=== PATIENT | female | born 1945 | race Caucasian/White ===

== ENCOUNTER 2018-04-18 17:41 | Inpatient (IN) | payer MEDICARE, BC ==
[2018-04-18] MEDS ORDERED: Lactated Ringers 1,000 ML IV ONE (17:57)
[2018-04-18 18:29] LABS: CHLORIDE,CL 104 mEq/L (98-106); SODIUM,NA 138 mEq/L (136-145)
--- NOTE | 2018-04-18 18:31 | EDM.PDOC ---
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 She reports she has had 12+ loose stools today. She reports she was feeling extremely weak so she called her friend to bring her here for evaluation. She reports she has been taking Immodium without relief. Denies any recent antibiotic use. She reports she uses Zofran and Compazine for nausea. She last had Zofran around noon. She denies any fever, chills, chest pain, shortness of breath, cough. Denies any abdominal pain. She was first diagnosed with pancreatic cancer in January 2016. She underwent whipple procedure at the [facility] 02/26/2016. She then underwent chemotherapy Gemcitabine x 6 cycles. She finished course of treatment on 2016. CT abd/pelvis 03/14/2018 revealed metastasis to lung and RUQ. She finished round 3 of 6 of Folfox on Wednesday04/11/2018. She reports up until the past few days she has tolerated all her treatments well. 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 She is down about 10 lbs in the past 2 weeks per chart review from oncology. She reports she sees Debbie VENCES at [facility]. - Related Data Allergies Allergy/AdvReac Type Severity Reaction Status Date / Time niacin Allergy Rash Verified 04/18/18 19:39 Home Meds: Home Meds Aspirin [Adult Low Dose Aspirin EC] 81 mg PO DAILY 03/07/16 [History] Cholecalciferol (Vitamin D3) [Vitamin D3] 1,000 unit PO DAILY 03/07/16 [History] Multivitamin [Multi-Vitamin Daily] 1 tab PO DAILY 03/07/16 [History] Omeprazole 20 mg PO DAILY 03/07/16 [History] oxyCODONE 5 mg PO Q6H PRN 03/07/16 [History] Prochlorperazine [Compazine] 5 mg PO DAILY PRN 03/18/18 [History] Amylase/Lipase/Protease [Creon DR 24,000 Unit] 12,000 units PO DAILY 04/18/18 [ History] Diphenoxylate HCl/Atropine [Diphenoxylate-Atrop 2.5-0.025] 1 tab PO DAILY PRN [History] Ondansetron [Ondansetron ODT] 1 tab PO Q8H PRN 04/18/18 [History] Prochlorperazine Maleate 1 tab PO DAILY 04/18/18 [History] Rivaroxaban [Xarelto] 1 tab PO DAILY 04/18/18 [History] metroNIDAZOLE [Metronidazole] 1 tab PO DAILY 04/18/18 [History] ED ROS GENERAL - Review of Systems Review Of Systems: See Below Constitutional: Reports: Weakness, Fatigue, Decreased Appetite, Weight Loss. Denies: Fever, Chills HEENT: Reports: No Symptoms Respiratory: Reports: No Symptoms. Denies: Shortness of Breath, Cough, Sputum Cardiovascular: Reports: No Symptoms. Denies: Chest Pain, Dyspnea on Exertion, Edema, Lightheadedness Endocrine: Reports: Fatigue GI/Abdominal: Reports: Diarrhea, Decreased Appetite, Flatus, Nausea. Denies: Abdominal Pain, Constipation, Hematemesis, Hematochezia, Melena, Vomiting : Reports: No Symptoms. Denies: Dysuria, Flank Pain, Frequency, Urgency Musculoskeletal: Reports: No Symptoms Skin: Reports: No Symptoms Neurological: Reports: Weakness Psychiatric: Reports: No Symptoms Hematologic/Lymphatic: Reports: No Symptoms Immunologic: Reports: No Symptoms ED EXAM, GI/ABD - Physical Exam Exam: See Below Exam Limited By: No Limitations General Appearance: Alert, WD/WN, No Apparent Distress Eyes: Bilateral: EOMI Throat/Mouth: Other (dry mucous membranes) Respiratory/Chest: No Respiratory Distress, Lungs Clear, Normal Breath Sounds, No Accessory Muscle Use, Chest Non-Tender Cardiovascular: Normal Peripheral Pulses, Regular Rate, Rhythm, No Edema, No Gallop, No JVD, No Murmur, No Rub, Tachycardia GI/Abdominal Exam: Normal Bowel Sounds, Soft, No Organomegaly, Tender (LLQ). No : Guarding, Rigid, Rebound Back Exam: Normal Inspection, Full Range of Motion. No: CVA Tenderness (L), CVA Tenderness (R) Extremities: Normal Inspection, Normal Range of Motion, Non-Tender, Normal Capillary Refill, No Pedal Edema Neurological: Alert, Oriented, CN II-XII Intact, Normal Cognition, Normal Gait, Normal Reflexes, No Motor/Sensory Deficits Psychiatric: Normal Affect, Normal Mood Skin Exam: Warm, Dry, Intact, Normal Color, No Rash Lymphatic: No Adenopathy Course - Vital Signs Last Recorded V/S: Last Vital Signs Temp 98.8 F 04/18/18 17:42 Pulse 117 H 04/18/18 17:42 Resp 20 04/18/18 17:42 BP 136/85 04/18/18 17:42 Pulse Ox 99 04/18/18 17:42 - Orders/Labs/Meds Orders: Active Orders 24 hr Category Date Time Status STOOL CULTURE [MREF] Stat Lab 04/18/18 18:10 Received Labs: Laboratory Tests 04/18/18 04/18/18 04/18/18 Range/Units 18:10 18:10 18:10 WBC 2.5 L (5.0-10.0) 10^3/uL RBC 3.80 L (4.00-5.50) 10^6/uL Hgb 11.1 L (12.0-16.0) g/dL Hct 34.4 L (37.0-47.0) % MCV 90.5 (82.0-94.0) fL MCH 29.2 (27.0-32.0) pg MCHC 32.3 L (33.0-38.0) g/dL RDW Coeff of Santosh 15.3 H (11.0-15.0) % Plt Count 80 L (150-400) 10^3/uL Neut % (Auto) 55.9 (35-85) % Lymph % (Auto) 33.1 (10-55) % Winn % (Auto) 9.4 (0-16) % Eos % (Auto) 1.2 (0-5) % Baso % (Auto) 0.4 (0-3) % Neut # (Auto) 1.42 L (1.80-7.00) 10^3/uL Lymph # (Auto) 0.84 L (1.00-4.80) 10^3/uL Winn # (Auto) 0.24 (0.00-0.80) 10^3/uL Eos # (Auto) 0.03 (0.00-0.45) 10^3/uL Baso # (Auto) 0.01 10^3/uL Sodium 138 (136-145) mEq/L Potassium 3.3 L (3.5-5.0) mEq/L Chloride 104 (98-106) mEq/L Carbon Dioxide 28 (21-32) mmol/L BUN 22 H (7-18) mg/dL Creatinine 0.7 (0.6-1.0) mg/dL Est Cr Clr Drug Dosing 58.30 mL/min Estimated GFR (MDRD) > 60 (>=60) mL/min Glucose 135 H (75-99) mg/dL Calcium 8.1 L (8.4-10.1) mg/dL Total Bilirubin (0.0-1.0) mg/dL Direct Bilirubin (0.0-0.3) mg/dL Indirect Bilirubin mg/dL AST (15-37) U/L ALT (12-78) U/L Alkaline Phosphatase (46-116) U/L C-Reactive Protein 5.3 H (0.2-0.8) mg/dL Total Protein (6.4-8.2) g/dL Albumin (3.4-5.0) g/dL 04/18/18 Range/Units 18:35 WBC (5.0-10.0) 10^3/uL RBC (4.00-5.50) 10^6/uL Hgb (12.0-16.0) g/dL Hct (37.0-47.0) % MCV (82.0-94.0) fL MCH (27.0-32.0) pg MCHC (33.0-38.0) g/dL RDW Coeff of Santosh (11.0-15.0) % Plt Count (150-400) 10^3/uL Neut % (Auto) (35-85) % Lymph % (Auto) (10-55) % Winn % (Auto) (0-16) % Eos % (Auto) (0-5) % Baso % (Auto) (0-3) % Neut # (Auto) (1.80-7.00) 10^3/uL Lymph # (Auto) (1.00-4.80) 10^3/uL Winn # (Auto) (0.00-0.80) 10^3/uL Eos # (Auto) (0.00-0.45) 10^3/uL Baso # (Auto) 10^3/uL Sodium (136-145) mEq/L Potassium (3.5-5.0) mEq/L Chloride (98-106) mEq/L Carbon Dioxide (21-32) mmol/L BUN (7-18) mg/dL Creatinine (0.6-1.0) mg/dL Est Cr Clr Drug Dosing mL/min Estimated GFR (MDRD) (>=60) mL/min Glucose (75-99) mg/dL Calcium (8.4-10.1) mg/dL Total Bilirubin 1.0 (0.0-1.0) mg/dL Direct Bilirubin 0.2 (0.0-0.3) mg/dL Indirect Bilirubin 0.8 mg/dL AST 29 (15-37) U/L ALT 17 (12-78) U/L Alkaline Phosphatase 98 (46-116) U/L C-Reactive Protein (0.2-0.8) mg/dL Total Protein 5.5 L (6.4-8.2) g/dL Albumin 2.5 L (3.4-5.0) g/dL Meds: Medications Discontinued Medications Generic Name Dose Route Start Last Admin Trade Name Freq PRN Reason Stop Dose Admin Lactated Ringer's 1,000 mls @ 999 mls/hr 04/18/18 17:57 04/18/18 18:23 Ringers, Lactated IV 04/18/18 18:57 999 mls/hr .BOLUS ONE Administration Ondansetron HCl Confirm 04/18/18 18:46 04/18/18 18:56 Zofran Administered 04/18/18 18:47 4 mg Dose Administration 4 mg .ROUTE .STK-MED ONE Departure - Departure Time of Disposition: 19:00 Disposition: Refer to Observation Condition: Fair Clinical Impression: Diarrhea, Generalized weakness, 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, Dehydration Nausea & vomiting Qualifiers: Vomiting type: unspecified Vomiting Intractability: non-intractable Qualified Code(s): R11.2 - Nausea with vomiting, unspecified Neutropenia Qualifiers: Neutropenia type: secondary to cancer chemotherapy Qualified Code(s): D70.1 - Agranulocytosis secondary to cancer chemotherapy; T45.1X5A - Adverse effect of antineoplastic and immunosuppressive drugs, initial encounter - Discharge Information - Problem List & Annotations (1) Dehydration SNOMED Code(s): 88230064 Code(s): E86.0 - DEHYDRATION Status: Acute Current Visit: Yes (2) Diarrhea SNOMED Code(s): 59478692 Code(s): R19.7 - DIARRHEA, UNSPECIFIED Status: Acute Current Visit: Yes (3) Generalized weakness SNOMED Code(s): 42437404 Code(s): R53.1 - WEAKNESS Status: Acute Current Visit: Yes (4) Nausea & vomiting SNOMED Code(s): 73022541 Code(s): R11.2 - NAUSEA WITH VOMITING, UNSPECIFIED Status: Acute Current Visit: Yes Qualifiers: Vomiting type: unspecified Vomiting Intractability: non-intractable Qualified Code(s): R11.2 - Nausea with vomiting, unspecified (5) Neutropenia SNOMED Code(s): 261149292 Code(s): D70.9 - NEUTROPENIA, UNSPECIFIED Status: Acute Current Visit: Yes Qualifiers: Neutropenia type: secondary to cancer chemotherapy Qualified Code(s): D70.1 - Agranulocytosis secondary to cancer chemotherapy; T45.1X5A - Adverse effect of antineoplastic and immunosuppressive drugs, initial encounter (6) 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 SNOMED Code(s): 748765954, 539755308 Code(s): C25.9 - MALIGNANT NEOPLASM OF PANCREAS, UNSPECIFIED; C78.00 - SECONDARY MALIGNANT NEOPLASM OF UNSPECIFIED LUNG Status: Acute Current Visit : Yes - Problem List Review Problem List Initiated/Reviewed/Updated: Yes - My Orders Last 24 Hours: My Active Orders 04/18/18 18:10 STOOL CULTURE [MREF] Stat - Assessment/Plan Admission H&P: Please use this note as an admission H&P Last 24 Hours: My Active Orders 04/18/18 18:10 STOOL CULTURE [MREF] Stat Plan: Refer to observation due to generalized weakness, nausea/vomiting, and diarrhea. She does currently live home alone. Will admit direct to Dr. Doss. Radha valdez at 3.3. IVF with KCL overnight. Cdff and stool WBC negative. Lomotil or Imodium as needed for diarrhea. WBC 2.5. Did receive Neulasta on Wednesday with chemotherapy. Patient agreeable to plan. Transferred to floor in satisfactory condition.
[2018-04-18] MEDS ORDERED: Ondansetron 4 MG/2 ML SDV ONE (18:46)
[2018-04-18] MEDS ORDERED: Atropine/Diphenoxylate 0.025-2.5 MG Tab PO PRN (20:05)
[2018-04-18] MEDS ORDERED: Morphine 2 MG/ML Syringe IVPUSH PRN (20:05)
[2018-04-18] MEDS ORDERED: Temazepam 15 MG Cap PO PRN (20:05)
[2018-04-18] MEDS ORDERED: NS + KCl 20mEq/L 1,000 ML IV SCH (20:05)
[2018-04-18] MEDS ORDERED: Prochlorperazine 10 MG Tab PO PRN (20:05)
[2018-04-18] MEDS ORDERED: Ondansetron 4 MG/2 ML SDV IV PRN (20:05)
[2018-04-18] MEDS ORDERED: Potassium Chloride 40 MEQ in Premix Bag 1 BAG IV ONE (20:07)
[2018-04-18] MEDS ORDERED: Sodium Chloride 0.9% 1,000 ML IV ONE (20:10)
[2018-04-19] MEDS: NS + KCl 20mEq/L 1,000 ML IV SCH ×3 (04:44→21:21)
[2018-04-19] MEDS: Pantoprazole 40 MG Tab.CR PO SCH (06:44)
[2018-04-19] MEDS: Aspirin 81 MG Tab.EC PO SCH (07:27)
[2018-04-19 08:40] LABS: CHLORIDE,CL 107 mEq/L (98-106); SODIUM,NA 139 mEq/L (136-145)
[2018-04-19] MEDS: AMYLASE PO SCH (10:04)
[2018-04-19] MEDS: LIPASE PO SCH (10:04)
[2018-04-19] MEDS: PROTEASE PO SCH (10:04)
[2018-04-19] MEDS: Ondansetron 8 MG in Sodium Chloride 0.9% 50 ML IV PRN (13:55)
[2018-04-19] MEDS: Loperamide 2 MG Cap PO PRN (14:01)
[2018-04-19] MEDS: Acetaminophen 325 MG Tab PO PRN (20:07)
--- NOTE | 2018-04-19 20:18 | PCM.PN ---
- General Info Date of Service: 04/19/18 Functional Status: Reports: Pain Controlled, Tolerating Diet, Ambulating - Review of Systems General: Reports: Weakness, Fatigue, Malaise HEENT: Reports: No Symptoms Pulmonary: Denies: Shortness of Breath, Cough Cardiovascular: Denies: Chest Pain, Edema Gastrointestinal: Reports: Abdominal Pain, Diarrhea, Nausea. Denies: Vomiting Genitourinary: Reports: No Symptoms Musculoskeletal: Reports: No Symptoms Skin: Reports: No Symptoms Neurological: Reports: Weakness - Patient Data Vitals - Most Recent: Last Vital Signs Temp 100.4 F 04/19/18 20:00 Pulse 100 04/19/18 20:00 Resp 18 04/19/18 20:00 BP 149/77 H 04/19/18 20:00 Pulse Ox 99 04/19/18 20:00 Weight - Most Recent: 162 lb 12.8 oz I&O - Last 24 Hours: Intake & Output 04/19/18 04/19/18 04/19/18 06:59 14:59 22:59 Intake Total 100 1000 615 Output Total 300 300 400 Balance -200 700 215 Lab Results Last 24 Hours: Laboratory Results - last 24 hr 04/19/18 04/19/18 Range/Units 07:11 07:11 WBC 1.4 L* (5.0-10.0) 10^3/uL RBC 3.30 L (4.00-5.50) 10^6/uL Hgb 9.6 L (12.0-16.0) g/dL Hct 30.2 L (37.0-47.0) % MCV 91.5 (82.0-94.0) fL MCH 29.1 (27.0-32.0) pg MCHC 31.8 L (33.0-38.0) g/dL RDW Coeff of Santosh 15.1 H (11.0-15.0) % Plt Count 70 L (150-400) 10^3/uL Neut % (Auto) 39.4 (35-85) % Lymph % (Auto) 43.0 (10-55) % [place] % (Auto) 15.5 (0-16) % Eos % (Auto) 2.1 (0-5) % Baso % (Auto) 0 (0-3) % Neut # (Auto) 0.56 L (1.80-7.00) 10^3/uL Lymph # (Auto) 0.61 L (1.00-4.80) 10^3/uL [place] # (Auto) 0.22 (0.00-0.80) 10^3/uL Eos # (Auto) 0.03 (0.00-0.45) 10^3/uL Baso # (Auto) 0.00 10^3/uL Sodium 139 (136-145) mEq/L Potassium 4.1 D (3.5-5.0) mEq/L Chloride 107 H (98-106) mEq/L Carbon Dioxide 25 (21-32) mmol/L BUN 18 (7-18) mg/dL Creatinine 0.6 (0.6-1.0) mg/dL Est Cr Clr Drug Dosing 68.02 mL/min Estimated GFR (MDRD) > 60 (>=60) mL/min Glucose 108 H (75-99) mg/dL Calcium 7.7 L (8.4-10.1) mg/dL Jan Results Last 24 Hours: Microbiology 04/18/18 18:10 C. difficile DNA Amplification - Final Stool / Feces NEGATIVE CDIFF BY DNA 04/18/18 18:10 Stool for WBCs - Final Stool / Feces NO WBC SEEN Med Orders - Current: Current Medications Acetaminophen (Tylenol) 650 mg PO Q4H PRN PRN Reason: Pain (Mild 1-3)/fever Last Admin: 04/19/18 20:07 Dose: 650 mg Aspirin (Halfprin) 81 mg PO DAILY [facility] Last Admin: 04/19/18 07:27 Dose: 81 mg Diphenoxylate HCl/Atropine (Lomotil 0.025-2.5 Mg) 1 tab PO DAILY PRN PRN Reason: Diarrhea Last Admin: 04/19/18 08:28 Dose: 1 tab Potassium Chloride/Sodium Chloride (Normal Saline With 20 Meq Kcl) 1,000 mls @ 125 mls/hr IV ASDIRECTED [facility] Last Admin: 04/19/18 12:53 Dose: 125 mls/hr Ondansetron HCl 8 mg/ Sodium (Chloride) 54 mls @ 200 mls/hr IV Q6H PRN PRN Reason: nausea/vomiting Last Admin: 04/19/18 13:55 Dose: 200 mls/hr Loperamide HCl (Imodium) 4 mg PO Q6H PRN PRN Reason: Diarrhea Last Admin: 04/19/18 14:01 Dose: 4 mg Morphine Sulfate (Morphine) 1 mg IVPUSH Q2H PRN PRN Reason: Pain (severe 7-10) Last Admin: 04/19/18 18:36 Dose: 1 mg Ptom Amylase/Lipase/Protease 12, 000 Units 12,000 units PO DAILY [facility] Last Admin: 04/19/18 10:04 Dose: 12,000 units Ptom Rivaroxaban ([Xarelto] 20 Mg Tab) 1 tab PO DAILY [facility] Oxycodone HCl (Oxycodone) 5 mg PO Q6H PRN PRN Reason: Pain Pantoprazole Sodium (Protonix) 40 mg PO ACBREAKFAST [facility] Last Admin: 04/19/18 06:44 Dose: 40 mg Prochlorperazine Maleate (Compazine) 5 mg PO DAILY PRN PRN Reason: Nausea Temazepam (Restoril) 15 mg PO BEDTIME PRN PRN Reason: Sleep Discontinued Medications Lactated Ringer's (Ringers, Lactated) 1,000 mls @ 999 mls/hr IV .BOLUS ONE Stop: 04/18/18 18:57 Last Admin: 04/18/18 18:23 Dose: 999 mls/hr Potassium Chloride/Sodium Chloride (Normal Saline With 20 Meq Kcl) 1,000 mls @ 125 mls/hr IV ASDIRECTED [facility] Potassium Chloride 40 meq/ (Premix) 100 mls @ 12.5 mls/hr IV ONETIME ONE Stop: 04/19/18 04:06 Last Admin: 04/18/18 20:33 Dose: 12.5 mls/hr Sodium Chloride (Normal Saline) 1,000 mls @ 125 mls/hr IV ONETIME ONE Stop: 04/19/18 04:09 Last Admin: 04/18/18 20:33 Dose: 125 mls/hr Ondansetron HCl (Zofran) Confirm Administered Dose 4 mg .ROUTE .STK-MED ONE Stop: 04/18/18 18:47 Last Admin: 04/18/18 18:56 Dose: 4 mg Ondansetron HCl (Zofran) 8 mg IV Q6H PRN PRN Reason: Nausea/Vomiting - Exam General: Alert, Oriented HEENT: Mucous Membr. Moist/[place] Neck: Supple Lungs: Clear to Auscultation, Normal Respiratory Effort Cardiovascular: Regular Rate, Regular Rhythm GI/Abdominal Exam: Normal Bowel Sounds, Soft, Guarding, Tender Extremities: Normal Inspection, No Pedal Edema Skin: Warm, Dry Neurological: No New Focal Deficit - Problem List & Annotations (1) Diarrhea SNOMED Code(s): 32625546 Code(s): R19.7 - DIARRHEA, UNSPECIFIED Status: Acute Priority: High Current Visit: Yes (2) Generalized weakness SNOMED Code(s): 25942939 Code(s): R53.1 - WEAKNESS Status: Acute Priority: High Current Visit: Yes (3) Nausea & vomiting SNOMED Code(s): 57896621 Code(s): R11.2 - NAUSEA WITH VOMITING, UNSPECIFIED Status: Acute Priority : High Current Visit: Yes Qualifiers: Vomiting type: unspecified Vomiting Intractability: non-intractable Qualified Code(s): R11.2 - Nausea with vomiting, unspecified (4) Neutropenia SNOMED Code(s): 919869193 Code(s): D70.9 - NEUTROPENIA, UNSPECIFIED Status: Acute Priority: High Current Visit: Yes Qualifiers: Neutropenia type: secondary to cancer chemotherapy Qualified Code(s): D70.1 - Agranulocytosis secondary to cancer chemotherapy; T45.1X5A - Adverse effect of antineoplastic and immunosuppressive drugs, initial encounter (5) 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 SNOMED Code(s): 601633207, 873296591 Code(s): C25.9 - MALIGNANT NEOPLASM OF PANCREAS, UNSPECIFIED; C78.00 - SECONDARY MALIGNANT NEOPLASM OF UNSPECIFIED LUNG Status: Acute Priority: High Current Visit: Yes - Problem List Review Problem List Initiated/Reviewed/Updated: Yes - Assessment Assessment:: Diarrhea Weakness Nausea and vomiting Metastatic Pancreatic Cancer - Plan Plan:: Patient continues to have mild abdominal pain, nausea intermittently. Does still have diarrhea stools but feels they are lessening. Did tolerate oral intake at breakfast this am without vomiting. Does remain very weak. Had recently had her 3rd session of chemotherapy for her pancreatic cancer. Relates she had been tolerating them up to this point. Remains neutropenic, WBC down to 1.4 today. Stool studies collected, negative for WBC and c diff. Will continue with IV fluids. Immodium for ongoing stools. Possible discharge home tomorrow.
[2018-04-20] MEDS: NS + KCl 20mEq/L 1,000 ML IV SCH ×3 (05:22→22:01)
[2018-04-20] MEDS: Pantoprazole 40 MG Tab.CR PO SCH (06:35)
[2018-04-20 07:35] LABS: CHLORIDE,CL 105 mEq/L (98-106); SODIUM,NA 137 mEq/L (136-145)
[2018-04-20] MEDS ORDERED: RIVAROXABAN 20 MG PO SCH (08:00)
[2018-04-20] MEDS: Aspirin 81 MG Tab.EC PO SCH (09:40)
[2018-04-20] MEDS: Loperamide 2 MG Cap PO PRN ×2 (09:41→16:27)
[2018-04-20] MEDS: Acetaminophen 325 MG Tab PO PRN (09:41)
[2018-04-20] MEDS: PROTEASE PO SCH ×3 (09:42→17:37)
[2018-04-20] MEDS: LIPASE PO SCH ×3 (09:42→17:37)
[2018-04-20] MEDS: AMYLASE PO SCH ×3 (09:42→17:37)
[2018-04-20] MEDS ORDERED: AMYLASE PO SCH (10:00)
[2018-04-20] MEDS ORDERED: PROTEASE PO SCH (10:00)
[2018-04-20] MEDS ORDERED: LIPASE PO SCH (10:00)
[2018-04-20] MEDS ORDERED: Ibuprofen 200 MG Tab PO PRN (11:49)
[2018-04-20] MEDS: Ibuprofen 200 MG Tab PO PRN (12:35)
--- NOTE | 2018-04-20 16:34 | PCM.PN ---
- General Info Date of Service: 04/20/18 Admission Dx/Problem (Free Text): Diarrhea Functional Status: Reports: Pain Controlled, Tolerating Diet, Ambulating - Review of Systems General: Reports: Fever, Weakness, Fatigue, Malaise HEENT: Reports: No Symptoms Pulmonary: Denies: Shortness of Breath, Cough Cardiovascular: Denies: Chest Pain, Edema, Lightheadedness Gastrointestinal: Reports: Abdominal Pain, Diarrhea, Nausea. Denies: Vomiting Genitourinary: Reports: No Symptoms Musculoskeletal: Reports: No Symptoms Skin: Reports: No Symptoms Neurological: Reports: Weakness - Patient Data Vitals - Most Recent: Last Vital Signs Temp 100.9 F H 04/20/18 13:35 Pulse 108 H 04/20/18 11:41 Resp 16 04/20/18 11:41 BP 150/84 H 04/20/18 11:41 Pulse Ox 98 04/20/18 11:41 Weight - Most Recent: 162 lb 12.8 oz I&O - Last 24 Hours: Intake & Output 04/20/18 04/20/18 04/20/18 06:59 14:59 22:59 Intake Total 1200 1000 Output Total 800 Balance 400 1000 Lab Results Last 24 Hours: Laboratory Results - last 24 hr 04/20/18 04/20/18 Range/Units 07:00 07:00 WBC 0.8 L* (5.0-10.0) 10^3/uL RBC 3.12 L (4.00-5.50) 10^6/uL Hgb 9.3 L (12.0-16.0) g/dL Hct 28.3 L (37.0-47.0) % MCV 90.7 (82.0-94.0) fL MCH 29.8 (27.0-32.0) pg MCHC 32.9 L (33.0-38.0) g/dL RDW Coeff of Santosh 14.9 (11.0-15.0) % Plt Count 66 L (150-400) 10^3/uL Neut % (Auto) 15.7 L (35-85) % Lymph % (Auto) 48.2 (10-55) % [place] % (Auto) 33.7 H (0-16) % Eos % (Auto) 2.4 (0-5) % Baso % (Auto) 0 (0-3) % Neut # (Auto) 0.13 L (1.80-7.00) 10^3/uL Lymph # (Auto) 0.40 L (1.00-4.80) 10^3/uL [place] # (Auto) 0.28 (0.00-0.80) 10^3/uL Eos # (Auto) 0.02 (0.00-0.45) 10^3/uL Baso # (Auto) 0.00 10^3/uL Sodium 137 (136-145) mEq/L Potassium 3.7 (3.5-5.0) mEq/L Chloride 105 (98-106) mEq/L Carbon Dioxide 23 (21-32) mmol/L BUN 9 (7-18) mg/dL Creatinine 0.5 L (0.6-1.0) mg/dL Est Cr Clr Drug Dosing 81.62 mL/min Estimated GFR (MDRD) > 60 (>=60) mL/min Glucose 112 H (75-99) mg/dL Calcium 7.8 L (8.4-10.1) mg/dL C-Reactive Protein 6.7 H (0.2-0.8) mg/dL Jan Results Last 24 Hours: Microbiology 04/18/18 18:10 Stool Aerobic Culture - Preliminary Stool / Feces Med Orders - Current: Current Medications Acetaminophen (Tylenol) 650 mg PO Q4H PRN PRN Reason: Pain (Mild 1-3)/fever Last Admin: 04/20/18 09:41 Dose: 650 mg Aspirin (Halfprin) 81 mg PO DAILY [facility] Last Admin: 04/20/18 09:40 Dose: 81 mg Diphenoxylate HCl/Atropine (Lomotil 0.025-2.5 Mg) 1 tab PO DAILY PRN PRN Reason: Diarrhea Last Admin: 04/19/18 08:28 Dose: 1 tab Potassium Chloride/Sodium Chloride (Normal Saline With 20 Meq Kcl) 1,000 mls @ 125 mls/hr IV ASDIRECTED [facility] Last Admin: 04/20/18 13:32 Dose: 125 mls/hr Ondansetron HCl 8 mg/ Sodium (Chloride) 54 mls @ 200 mls/hr IV Q6H PRN PRN Reason: nausea/vomiting Last Admin: 04/19/18 13:55 Dose: 200 mls/hr Ibuprofen (Motrin) 400 mg PO Q6H PRN PRN Reason: Pain/Fever Last Admin: 04/20/18 12:35 Dose: 400 mg Loperamide HCl (Imodium) 4 mg PO Q6H PRN PRN Reason: Diarrhea Last Admin: 04/20/18 16:27 Dose: 4 mg Morphine Sulfate (Morphine) 1 mg IVPUSH Q2H PRN PRN Reason: Pain (severe 7-10) Last Admin: 04/19/18 18:36 Dose: 1 mg Ptom Rivaroxaban ([Xarelto] 20 Mg Tab) 1 tab PO DAILY [facility] Ptom Amylase/Lipase/Protease 12, 000 Units 36,000 units PO TIDMEALS [facility] Last Admin: 04/20/18 12:30 Dose: 36,000 units Oxycodone HCl (Oxycodone) 5 mg PO Q6H PRN PRN Reason: Pain Pantoprazole Sodium (Protonix) 40 mg PO ACBREAKFAST [facility] Last Admin: 04/20/18 06:35 Dose: 40 mg Prochlorperazine Maleate (Compazine) 5 mg PO DAILY PRN PRN Reason: Nausea Temazepam (Restoril) 15 mg PO BEDTIME PRN PRN Reason: Sleep Last Admin: 04/20/18 00:39 Dose: 15 mg Discontinued Medications Lactated Ringer's (Ringers, Lactated) 1,000 mls @ 999 mls/hr IV .BOLUS ONE Stop: 04/18/18 18:57 Last Admin: 04/18/18 18:23 Dose: 999 mls/hr Potassium Chloride/Sodium Chloride (Normal Saline With 20 Meq Kcl) 1,000 mls @ 125 mls/hr IV ASDIRECTED [facility] Potassium Chloride 40 meq/ (Premix) 100 mls @ 12.5 mls/hr IV ONETIME ONE Stop: 04/19/18 04:06 Last Admin: 04/18/18 20:33 Dose: 12.5 mls/hr Sodium Chloride (Normal Saline) 1,000 mls @ 125 mls/hr IV ONETIME ONE Stop: 04/19/18 04:09 Last Admin: 04/18/18 20:33 Dose: 125 mls/hr Ibuprofen (Motrin) 200 mg PO Q6H PRN PRN Reason: Pain/Fever Ptom Amylase/Lipase/Protease 12, 000 Units 12,000 units PO DAILY [facility] Last Admin: 04/20/18 09:42 Dose: Not Given Ptom Amylase/Lipase/Protease 12, 000 Units 36,000 units PO TID [facility] Last Admin: 04/20/18 09:43 Dose: 36,000 units Ondansetron HCl (Zofran) Confirm Administered Dose 4 mg .ROUTE .STK-MED ONE Stop: 04/18/18 18:47 Last Admin: 04/18/18 18:56 Dose: 4 mg Ondansetron HCl (Zofran) 8 mg IV Q6H PRN PRN Reason: Nausea/Vomiting - Exam General: Alert, Oriented HEENT: Mucous Membr. Moist/[place] Neck: Supple Lungs: Clear to Auscultation, Normal Respiratory Effort Cardiovascular: Regular Rate, Regular Rhythm GI/Abdominal Exam: Normal Bowel Sounds, Soft, Non-Tender Extremities: Normal Inspection, No Pedal Edema Skin: Warm, Dry Neurological: No New Focal Deficit - Problem List & Annotations (1) Diarrhea SNOMED Code(s): 03000680 Code(s): R19.7 - DIARRHEA, UNSPECIFIED Status: Acute Priority: High Current Visit: Yes (2) Generalized weakness SNOMED Code(s): 73672721 Code(s): R53.1 - WEAKNESS Status: Acute Priority: High Current Visit: Yes (3) Nausea & vomiting SNOMED Code(s): 82281206 Code(s): R11.2 - NAUSEA WITH VOMITING, UNSPECIFIED Status: Acute Priority : High Current Visit: Yes Qualifiers: Vomiting type: unspecified Vomiting Intractability: non-intractable Qualified Code(s): R11.2 - Nausea with vomiting, unspecified (4) Neutropenia SNOMED Code(s): 837368671 Code(s): D70.9 - NEUTROPENIA, UNSPECIFIED Status: Acute Priority: High Current Visit: Yes Qualifiers: Neutropenia type: secondary to cancer chemotherapy Qualified Code(s): D70.1 - Agranulocytosis secondary to cancer chemotherapy; T45.1X5A - Adverse effect of antineoplastic and immunosuppressive drugs, initial encounter (5) 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 SNOMED Code(s): 721178082, 154252726 Code(s): C25.9 - MALIGNANT NEOPLASM OF PANCREAS, UNSPECIFIED; C78.00 - SECONDARY MALIGNANT NEOPLASM OF UNSPECIFIED LUNG Status: Acute Priority: High Current Visit: Yes (6) Palliative care patient SNOMED Code(s): 176493572 Code(s): Z51.5 - ENCOUNTER FOR PALLIATIVE CARE Status: Acute Priority: High Current Visit: Yes - Problem List Review Problem List Initiated/Reviewed/Updated: Yes - My Orders Last 24 Hours: My Active Orders 04/20/18 10:10 Cardiac Monitoring [RC] 799,199904/20/18 11:49 Blood Culture x2 Reflex Set [OM.PC] Stat 04/20/18 12:00 CULTURE BLOOD [BC] Stat Amylase/Lipase/Protease 36,000 units PO TIDMEALS 04/20/18 12:13 CULTURE BLOOD [BC] Stat 04/20/18 12:30 Ibuprofen [Motrin] 400 mg PO Q6H PRN 04/21/18 05:11 BASIC METABOLIC PANEL,BMP [CHEM] AM C-REACTIVE PROTEIN [CHEM] AM CBC WITH AUTO DIFF [HEME] AM - Assessment Assessment:: Diarrhea Weakness Nausea and vomiting Metastatic Pancreatic Cancer - Plan Plan:: Patient continues to have mild abdominal pain, nausea intermittently. Does still have diarrhea stools but feels they are lessening. Did tolerate oral intake at breakfast this am without vomiting. Does remain very weak. Had recently had her 3rd session of chemotherapy for her pancreatic cancer. Relates she had been tolerating them up to this point. Remains neutropenic, WBC down to 1.4 today. Stool studies collected, negative for WBC and c diff. Will continue with IV fluids. Immodium for ongoing stools. Possible discharge home tomorrow. 04-20-2018 Palliative care patient does feel better today. Does have mild abdominal pain, feels the diarrhea is slowing down. Overall feels stronger. Is running temps today. 101 at times. WBC is down to 0.8 today. Hemoglobin 9.3. CRP slightly increased to 6.7. Blood pressure stable. Is ambulating in room, tolerating well. Abdomen does remain firm to the RUQ, tender with palpation. Will continue with IV fluids. Add Rocephin. Blood cultures x2. Reevaluate labs in am. Transferred to [facility] status.
[2018-04-20] MEDS: cefTRIAXone 1 GM Vial IVPUSH SCH (17:37)
[2018-04-20] MEDS: Ondansetron 8 MG in Sodium Chloride 0.9% 50 ML IV PRN (19:39)
[2018-04-21] MEDS: Ibuprofen 200 MG Tab PO PRN (03:32)
[2018-04-21] MEDS: NS + KCl 20mEq/L 1,000 ML IV SCH ×3 (06:04→22:17)
[2018-04-21] MEDS: Pantoprazole 40 MG Tab.CR PO SCH (06:05)
[2018-04-21] MEDS: PROTEASE PO SCH ×3 (07:26→16:30)
[2018-04-21] MEDS: Acetaminophen 325 MG Tab PO PRN ×2 (07:26→19:46)
[2018-04-21] MEDS: AMYLASE PO SCH ×3 (07:26→16:30)
[2018-04-21] MEDS: LIPASE PO SCH ×3 (07:26→16:30)
[2018-04-21] MEDS: Aspirin 81 MG Tab.EC PO SCH (07:26)
[2018-04-21 08:00] LABS: CHLORIDE,CL 107 mEq/L (98-106); SODIUM,NA 137 mEq/L (136-145)
--- NOTE | 2018-04-21 15:07 | PCM.PN ---
- General Info Date of Service: 04/21/18 Admission Dx/Problem (Free Text): Diarrhea Functional Status: Reports: Pain Controlled, Tolerating Diet (eats a small amount with meals), Ambulating - Review of Systems General: Reports: Fever, Weakness, Fatigue, Malaise HEENT: Reports: No Symptoms Pulmonary: Denies: Shortness of Breath, Cough Cardiovascular: Denies: Chest Pain, Edema, Lightheadedness Gastrointestinal: Reports: Abdominal Pain, Diarrhea, Nausea. Denies: Vomiting Genitourinary: Reports: No Symptoms Musculoskeletal: Reports: No Symptoms Skin: Reports: Pallor Neurological: Reports: Weakness - Patient Data Vitals - Most Recent: Last Vital Signs Temp 96 F 04/21/18 13:03 Pulse 110 H 04/21/18 13:03 Resp 16 04/21/18 11:39 BP 104/63 04/21/18 11:39 Pulse Ox 96 04/21/18 11:39 Weight - Most Recent: 162 lb 12.8 oz I&O - Last 24 Hours: Intake & Output 04/21/18 04/21/18 04/21/18 06:59 14:59 22:59 Intake Total 1400 733 Output Total 500 Balance 900 733 Lab Results Last 24 Hours: Laboratory Results - last 24 hr 04/21/18 04/21/18 04/21/18 Range/Units 07:00 07:00 08:44 WBC 0.8 L* (5.0-10.0) 10^3/uL RBC 2.79 L (4.00-5.50) 10^6/uL Hgb 8.2 L (12.0-16.0) g/dL Hct 25.2 L (37.0-47.0) % MCV 90.3 (82.0-94.0) fL MCH 29.4 (27.0-32.0) pg MCHC 32.5 L (33.0-38.0) g/dL RDW Coeff of Santosh 14.8 (11.0-15.0) % Plt Count 88 L (150-400) 10^3/uL Add Manual Diff Yes Neutrophils % (Manual) 4 L (35-85) % Band Neutrophils % 16 H (0-5) % Lymphocytes % (Manual) 48 (21-55) % Monocytes % (Manual) 24 H (2-12) % Eosinophils % (Manual) 8 H (0-5) % Absolute Neutrophils 0.16 L (1.80-7.00) 10^3/uL Lymphocytes # (Manual) 0.38 L (1.00-4.80) 10^3/uL Monocytes # (Manual) 0.19 (0.00-0.80) 10^3/uL Eosinophils # (Manual) 0.06 (0.00-0.45) 10^3/uL Sodium 137 (136-145) mEq/L Potassium 3.6 (3.5-5.0) mEq/L Chloride 107 H (98-106) mEq/L Carbon Dioxide 23 (21-32) mmol/L BUN 13 (7-18) mg/dL Creatinine 0.7 (0.6-1.0) mg/dL Est Cr Clr Drug Dosing 58.30 mL/min Estimated GFR (MDRD) > 60 (>=60) mL/min Glucose 90 (75-99) mg/dL Calcium 7.7 L (8.4-10.1) mg/dL C-Reactive Protein 23.3 H (0.2-0.8) mg/dL Urine Color Dark yellow (YELLOW) Urine Appearance Clear (CLEAR) Urine pH 5.5 (4.5-8.0) Ur Specific Isabella >= 1.030 H (1.003-1.020) Urine Protein 100 H (NEGATIVE) mg/dL Urine Glucose (UA) Negative (NEGATIVE) mg/dL Urine Ketones 15 H (NEGATIVE) mg/dL Urine Occult Blood Negative (NEGATIVE) Urine Nitrite Negative (NEGATIVE) Urine Bilirubin Negative (NEGATIVE) Urine Urobilinogen 0.2 (0.2-1.0) EU/dL Ur Leukocyte Esterase Negative (NEGATIVE) Urine RBC Not seen (0-5) /HPF Urine WBC Not seen (0-5) /HPF Ur Squamous Epith Cells Few H (NOT SEEN) /HPF Urine Bacteria Few H (NOT SEEN) /HPF Urine Mucus Many H (NOT SEEN) /HPF Jan Results Last 24 Hours: Microbiology 04/20/18 12:00 Aerobic Blood Culture - Preliminary Blood - Venous NO GROWTH AFTER 1 DAY Anaerobic Blood Culture - Preliminary NO GROWTH AFTER 1 DAY 04/20/18 12:13 Aerobic Blood Culture - Preliminary Blood - Venous - Lab Draw NO GROWTH AFTER 1 DAY Anaerobic Blood Culture - Preliminary NO GROWTH AFTER 1 DAY 04/18/18 18:10 Stool Aerobic Culture - Preliminary Stool / Feces Med Orders - Current: Current Medications Acetaminophen (Tylenol) 650 mg PO Q4H PRN PRN Reason: Pain (Mild 1-3)/fever Last Admin: 04/21/18 07:26 Dose: 650 mg Aspirin (Halfprin) 81 mg PO DAILY [facility] Last Admin: 04/21/18 07:26 Dose: 81 mg Ceftriaxone Sodium (Rocephin) 1 gm IVPUSH DAILY@1600 [facility] Last Admin: 04/20/18 17:37 Dose: 1 gm Diphenoxylate HCl/Atropine (Lomotil 0.025-2.5 Mg) 1 tab PO DAILY PRN PRN Reason: Diarrhea Last Admin: 04/19/18 08:28 Dose: 1 tab Potassium Chloride/Sodium Chloride (Normal Saline With 20 Meq Kcl) 1,000 mls @ 125 mls/hr IV ASDIRECTED [facility] Last Admin: 04/21/18 14:05 Dose: 125 mls/hr Ondansetron HCl 8 mg/ Sodium (Chloride) 54 mls @ 200 mls/hr IV Q6H PRN PRN Reason: nausea/vomiting Last Admin: 04/20/18 19:39 Dose: 200 mls/hr Ibuprofen (Motrin) 400 mg PO Q6H PRN PRN Reason: Pain/Fever Last Admin: 04/21/18 03:32 Dose: 400 mg Loperamide HCl (Imodium) 4 mg PO Q6H PRN PRN Reason: Diarrhea Last Admin: 04/20/18 16:27 Dose: 4 mg Morphine Sulfate (Morphine) 1 mg IVPUSH Q2H PRN PRN Reason: Pain (severe 7-10) Last Admin: 04/19/18 18:36 Dose: 1 mg Ptom Rivaroxaban ([Xarelto] 20 Mg Tab) 1 tab PO DAILY [facility] Ptom Amylase/Lipase/Protease 12, 000 Units 36,000 units PO TIDMEALS [facility] Last Admin: 04/21/18 11:56 Dose: 36,000 units Oxycodone HCl (Oxycodone) 5 mg PO Q6H PRN PRN Reason: Pain Pantoprazole Sodium (Protonix) 40 mg PO ACBREAKFAST [facility] Last Admin: 04/21/18 06:05 Dose: 40 mg Prochlorperazine Maleate (Compazine) 5 mg PO DAILY PRN PRN Reason: Nausea Last Admin: 04/21/18 00:00 Dose: 5 mg Temazepam (Restoril) 15 mg PO BEDTIME PRN PRN Reason: Sleep Last Admin: 04/20/18 00:39 Dose: 15 mg Discontinued Medications Lactated Ringer's (Ringers, Lactated) 1,000 mls @ 999 mls/hr IV .BOLUS ONE Stop: 04/18/18 18:57 Last Admin: 04/18/18 18:23 Dose: 999 mls/hr Potassium Chloride/Sodium Chloride (Normal Saline With 20 Meq Kcl) 1,000 mls @ 125 mls/hr IV ASDIRECTED [facility] Potassium Chloride 40 meq/ (Premix) 100 mls @ 12.5 mls/hr IV ONETIME ONE Stop: 04/19/18 04:06 Last Admin: 04/18/18 20:33 Dose: 12.5 mls/hr Sodium Chloride (Normal Saline) 1,000 mls @ 125 mls/hr IV ONETIME ONE Stop: 04/19/18 04:09 Last Admin: 04/18/18 20:33 Dose: 125 mls/hr Ibuprofen (Motrin) 200 mg PO Q6H PRN PRN Reason: Pain/Fever Ptom Amylase/Lipase/Protease 12, 000 Units 12,000 units PO DAILY [facility] Last Admin: 04/20/18 09:42 Dose: Not Given Ptom Amylase/Lipase/Protease 12, 000 Units 36,000 units PO TID [facility] Last Admin: 04/20/18 09:43 Dose: 36,000 units Ondansetron HCl (Zofran) Confirm Administered Dose 4 mg .ROUTE .STK-MED ONE Stop: 04/18/18 18:47 Last Admin: 04/18/18 18:56 Dose: 4 mg Ondansetron HCl (Zofran) 8 mg IV Q6H PRN PRN Reason: Nausea/Vomiting - Exam General: Alert, Oriented HEENT: Mucous Membr. Moist/[place] Neck: Supple Lungs: Clear to Auscultation, Normal Respiratory Effort Cardiovascular: Regular Rate, Regular Rhythm GI/Abdominal Exam: Normal Bowel Sounds, Soft, Guarding, Tender (RUQ) Extremities: Normal Inspection, No Pedal Edema Skin: Warm, Dry Neurological: No New Focal Deficit - Problem List & Annotations (1) Diarrhea SNOMED Code(s): 26705859 Code(s): R19.7 - DIARRHEA, UNSPECIFIED Status: Acute Priority: High Current Visit: Yes (2) Generalized weakness SNOMED Code(s): 86649706 Code(s): R53.1 - WEAKNESS Status: Acute Priority: High Current Visit: Yes (3) Nausea & vomiting SNOMED Code(s): 07002774 Code(s): R11.2 - NAUSEA WITH VOMITING, UNSPECIFIED Status: Acute Priority : High Current Visit: Yes Qualifiers: Vomiting type: unspecified Vomiting Intractability: non-intractable Qualified Code(s): R11.2 - Nausea with vomiting, unspecified (4) Neutropenia SNOMED Code(s): 891639807 Code(s): D70.9 - NEUTROPENIA, UNSPECIFIED Status: Acute Priority: High Current Visit: Yes Qualifiers: Neutropenia type: secondary to cancer chemotherapy Qualified Code(s): D70.1 - Agranulocytosis secondary to cancer chemotherapy; T45.1X5A - Adverse effect of antineoplastic and immunosuppressive drugs, initial encounter (5) 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 SNOMED Code(s): 900945045, 486043488 Code(s): C25.9 - MALIGNANT NEOPLASM OF PANCREAS, UNSPECIFIED; C78.00 - SECONDARY MALIGNANT NEOPLASM OF UNSPECIFIED LUNG Status: Acute Priority: High Current Visit: Yes (6) Palliative care patient SNOMED Code(s): 718611831 Code(s): Z51.5 - ENCOUNTER FOR PALLIATIVE CARE Status: Acute Priority: High Current Visit: Yes - Problem List Review Problem List Initiated/Reviewed/Updated: Yes - My Orders Last 24 Hours: My Active Orders 04/20/18 16:45 cefTRIAXone [Rocephin] 1 gm IVPUSH DAILY@1600 04/21/18 08:44 Chest 2V [CR] Routine UA W/MICROSCOPIC [URIN] Routine 04/22/18 05:11 BASIC METABOLIC PANEL,BMP [CHEM] AM C-REACTIVE PROTEIN [CHEM] AM CBC WITH AUTO DIFF [HEME] AM - Assessment Assessment:: Diarrhea Weakness Nausea and vomiting Metastatic Pancreatic Cancer - Plan Plan:: Patient continues to have mild abdominal pain, nausea intermittently. Does still have diarrhea stools but feels they are lessening. Did tolerate oral intake at breakfast this am without vomiting. Does remain very weak. Had recently had her 3rd session of chemotherapy for her pancreatic cancer. Relates she had been tolerating them up to this point. Remains neutropenic, WBC down to 1.4 today. Stool studies collected, negative for WBC and c diff. Will continue with IV fluids. Immodium for ongoing stools. Possible discharge home tomorrow. 04-20-2018 Palliative care patient does feel better today. Does have mild abdominal pain, feels the diarrhea is slowing down. Overall feels stronger. Is running temps today. 101 at times. WBC is down to 0.8 today. Hemoglobin 9.3. CRP slightly increased to 6.7. Blood pressure stable. Is ambulating in room, tolerating well. Abdomen does remain firm to the RUQ, tender with palpation. Will continue with IV fluids. Add Rocephin. Blood cultures x2. Reevaluate labs in am. Transferred to acute status. 04-21-2018 Patient continues to feel weak but better than on admit day. She still has loose stools but improved. Has been running fevers up to 102. Denies cough, no urinary complaints. Did obtain blood cultures yesterday, premilinary negative today. CRP has increased to 23, WBC remains at 0.8. Hemoglobin down to 8.1. Patient relates has not had previous concerns with anemia to the point of ever needing blood transfusions up to this point with chemo. Continues to have nausea, was treated with Zofran. Small intake with meals. Blood pressure is stable. Abdomen remains soft, tender to RUQ. Will continue with IV fluids. Continue Rocephin. Obtain chest xray and urine today. Inappropriate for discharge due to status.
[2018-04-21] MEDS: cefTRIAXone 1 GM Vial IVPUSH SCH (16:13)
[2018-04-21] MEDS: Ondansetron 8 MG in Sodium Chloride 0.9% 50 ML IV PRN (16:14)
[2018-04-21] MEDS: oxyCODONE 5 MG Tab PO PRN (16:26)
[2018-04-22] MEDS: Acetaminophen 325 MG Tab PO PRN ×2 (01:51→19:51)
[2018-04-22] MEDS: oxyCODONE 5 MG Tab PO PRN ×2 (03:44→10:47)
[2018-04-22] MEDS: NS + KCl 20mEq/L 1,000 ML IV SCH ×3 (06:15→23:19)
[2018-04-22] MEDS: Pantoprazole 40 MG Tab.CR PO SCH (07:08)
[2018-04-22 07:32] LABS: CHLORIDE,CL 108 mEq/L (98-106); SODIUM,NA 138 mEq/L (136-145)
[2018-04-22] MEDS: PROTEASE PO SCH ×3 (08:04→17:42)
[2018-04-22] MEDS: AMYLASE PO SCH ×3 (08:04→17:42)
[2018-04-22] MEDS: Aspirin 81 MG Tab.EC PO SCH (08:04)
[2018-04-22] MEDS: LIPASE PO SCH ×3 (08:04→17:42)
--- NOTE | 2018-04-22 09:16 | PCM.PN ---
- General Info Date of Service: 04/22/18 Admission Dx/Problem (Free Text): Diarrhea Functional Status: Reports: Pain Controlled, Tolerating Diet, Ambulating - Review of Systems General: Reports: Fever (last fever last evening), Weakness, Fatigue, Malaise HEENT: Reports: No Symptoms Pulmonary: Denies: Shortness of Breath, Cough Cardiovascular: Denies: Chest Pain, Edema, Lightheadedness Gastrointestinal: Reports: Abdominal Pain, Diarrhea, Nausea. Denies: Vomiting Genitourinary: Reports: No Symptoms Musculoskeletal: Reports: No Symptoms Skin: Reports: No Symptoms Neurological: Reports: Weakness - Patient Data Vitals - Most Recent: Last Vital Signs Temp 98.5 F 04/22/18 08:00 Pulse 111 H 04/22/18 08:00 Resp 20 04/22/18 08:00 BP 105/57 L 04/22/18 08:00 Pulse Ox 96 04/22/18 08:00 Weight - Most Recent: 162 lb 12.8 oz I&O - Last 24 Hours: Intake & Output 04/21/18 04/22/18 04/22/18 22:59 06:59 14:59 Intake Total 1300 1546 Output Total 300 200 100 Balance 1000 1346 -100 Lab Results Last 24 Hours: Laboratory Results - last 24 hr 04/21/18 04/22/18 04/22/18 Range/Units 08:44 07:15 07:15 WBC 2.7 L (5.0-10.0) 10^3/uL RBC 3.00 L (4.00-5.50) 10^6/uL Hgb 8.7 L (12.0-16.0) g/dL Hct 27.3 L (37.0-47.0) % MCV 91.0 (82.0-94.0) fL MCH 29.0 (27.0-32.0) pg MCHC 31.9 L (33.0-38.0) g/dL RDW Coeff of Santosh 15.8 H (11.0-15.0) % Plt Count 130 L (150-400) 10^3/uL Neut % (Auto) 55.7 (35-85) % Lymph % (Auto) 21.2 (10-55) % [place] % (Auto) 20.1 H (0-16) % Eos % (Auto) 2.6 (0-5) % Baso % (Auto) 0.4 (0-3) % Neut # (Auto) 1.50 L (1.80-7.00) 10^3/uL Lymph # (Auto) 0.57 L (1.00-4.80) 10^3/uL [place] # (Auto) 0.54 (0.00-0.80) 10^3/uL Eos # (Auto) 0.07 (0.00-0.45) 10^3/uL Baso # (Auto) 0.01 10^3/uL Sodium 138 (136-145) mEq/L Potassium 3.8 (3.5-5.0) mEq/L Chloride 108 H (98-106) mEq/L Carbon Dioxide 19 L (21-32) mmol/L BUN 17 (7-18) mg/dL Creatinine 0.7 (0.6-1.0) mg/dL Est Cr Clr Drug Dosing 58.30 mL/min Estimated GFR (MDRD) > 60 (>=60) mL/min Glucose 76 (75-99) mg/dL Calcium 8.3 L (8.4-10.1) mg/dL C-Reactive Protein 29.7 H (0.2-0.8) mg/dL Urine Color Dark yellow (YELLOW) Urine Appearance Clear (CLEAR) Urine pH 5.5 (4.5-8.0) Ur Specific [place] >= 1.030 H (1.003-1.020) Urine Protein 100 H (NEGATIVE) mg/dL Urine Glucose (UA) Negative (NEGATIVE) mg/dL Urine Ketones 15 H (NEGATIVE) mg/dL Urine Occult Blood Negative (NEGATIVE) Urine Nitrite Negative (NEGATIVE) Urine Bilirubin Negative (NEGATIVE) Urine Urobilinogen 0.2 (0.2-1.0) EU/dL Ur Leukocyte Esterase Negative (NEGATIVE) Urine RBC Not seen (0-5) /HPF Urine WBC Not seen (0-5) /HPF Ur Squamous Epith Cells Few H (NOT SEEN) /HPF Urine Bacteria Few H (NOT SEEN) /HPF Urine Mucus Many H (NOT SEEN) /HPF Jan Results Last 24 Hours: Microbiology 04/20/18 12:00 Aerobic Blood Culture - Preliminary Blood - Venous NO GROWTH AFTER 1 DAY Anaerobic Blood Culture - Preliminary NO GROWTH AFTER 1 DAY 04/20/18 12:13 Aerobic Blood Culture - Preliminary Blood - Venous - Lab Draw NO GROWTH AFTER 1 DAY Anaerobic Blood Culture - Preliminary NO GROWTH AFTER 1 DAY Med Orders - Current: Current Medications Acetaminophen (Tylenol) 650 mg PO Q4H PRN PRN Reason: Pain (Mild 1-3)/fever Last Admin: 04/22/18 01:51 Dose: 650 mg Aspirin (Halfprin) 81 mg PO DAILY [facility] Last Admin: 04/22/18 08:04 Dose: 81 mg Ceftriaxone Sodium (Rocephin) 1 gm IVPUSH DAILY@1600 [facility] Last Admin: 04/21/18 16:13 Dose: 1 gm Diphenoxylate HCl/Atropine (Lomotil 0.025-2.5 Mg) 1 tab PO DAILY PRN PRN Reason: Diarrhea Last Admin: 04/19/18 08:28 Dose: 1 tab Potassium Chloride/Sodium Chloride (Normal Saline With 20 Meq Kcl) 1,000 mls @ 125 mls/hr IV ASDIRECTED [facility] Last Admin: 04/22/18 06:15 Dose: 125 mls/hr Ondansetron HCl 8 mg/ Sodium (Chloride) 54 mls @ 200 mls/hr IV Q6H PRN PRN Reason: nausea/vomiting Last Admin: 04/21/18 16:14 Dose: 200 mls/hr Ibuprofen (Motrin) 400 mg PO Q6H PRN PRN Reason: Pain/Fever Last Admin: 04/21/18 03:32 Dose: 400 mg Loperamide HCl (Imodium) 4 mg PO Q6H PRN PRN Reason: Diarrhea Last Admin: 04/20/18 16:27 Dose: 4 mg Morphine Sulfate (Morphine) 1 mg IVPUSH Q2H PRN PRN Reason: Pain (severe 7-10) Last Admin: 04/19/18 18:36 Dose: 1 mg Ptom Rivaroxaban ([Xarelto] 20 Mg Tab) 1 tab PO DAILY [facility] Ptom Amylase/Lipase/Protease 12, 000 Units 36,000 units PO TIDMEALS [facility] Last Admin: 04/22/18 08:04 Dose: 36,000 units Oxycodone HCl (Oxycodone) 5 mg PO Q6H PRN PRN Reason: Pain Last Admin: 04/22/18 03:44 Dose: 5 mg Pantoprazole Sodium (Protonix) 40 mg PO ACBREAKFAST [facility] Last Admin: 04/22/18 07:08 Dose: 40 mg Prochlorperazine Maleate (Compazine) 5 mg PO DAILY PRN PRN Reason: Nausea Last Admin: 04/21/18 00:00 Dose: 5 mg Temazepam (Restoril) 15 mg PO BEDTIME PRN PRN Reason: Sleep Last Admin: 04/20/18 00:39 Dose: 15 mg Discontinued Medications Lactated Ringer's (Ringers, Lactated) 1,000 mls @ 999 mls/hr IV .BOLUS ONE Stop: 04/18/18 18:57 Last Admin: 04/18/18 18:23 Dose: 999 mls/hr Potassium Chloride/Sodium Chloride (Normal Saline With 20 Meq Kcl) 1,000 mls @ 125 mls/hr IV ASDIRECTED [facility] Potassium Chloride 40 meq/ (Premix) 100 mls @ 12.5 mls/hr IV ONETIME ONE Stop: 04/19/18 04:06 Last Admin: 04/18/18 20:33 Dose: 12.5 mls/hr Sodium Chloride (Normal Saline) 1,000 mls @ 125 mls/hr IV ONETIME ONE Stop: 04/19/18 04:09 Last Admin: 04/18/18 20:33 Dose: 125 mls/hr Ibuprofen (Motrin) 200 mg PO Q6H PRN PRN Reason: Pain/Fever Ptom Amylase/Lipase/Protease 12, 000 Units 12,000 units PO DAILY [facility] Last Admin: 04/20/18 09:42 Dose: Not Given Ptom Amylase/Lipase/Protease 12, 000 Units 36,000 units PO TID [facility] Last Admin: 04/20/18 09:43 Dose: 36,000 units Ondansetron HCl (Zofran) Confirm Administered Dose 4 mg .ROUTE .STK-MED ONE Stop: 04/18/18 18:47 Last Admin: 04/18/18 18:56 Dose: 4 mg Ondansetron HCl (Zofran) 8 mg IV Q6H PRN PRN Reason: Nausea/Vomiting - Exam General: Alert, Oriented HEENT: Mucous Membr. Moist/[place] Neck: Supple Lungs: Clear to Auscultation, Normal Respiratory Effort Cardiovascular: Regular Rate, Regular Rhythm GI/Abdominal Exam: Normal Bowel Sounds, Soft, Tender (RUQ) Extremities: Normal Inspection, No Pedal Edema Skin: Warm, Dry Neurological: No New Focal Deficit - Problem List & Annotations (1) Diarrhea SNOMED Code(s): 96765421 Code(s): R19.7 - DIARRHEA, UNSPECIFIED Status: Acute Priority: High Current Visit: Yes (2) Generalized weakness SNOMED Code(s): 83587024 Code(s): R53.1 - WEAKNESS Status: Acute Priority: High Current Visit: Yes (3) Nausea & vomiting SNOMED Code(s): 07508361 Code(s): R11.2 - NAUSEA WITH VOMITING, UNSPECIFIED Status: Acute Priority : High Current Visit: Yes Qualifiers: Vomiting type: unspecified Vomiting Intractability: non-intractable Qualified Code(s): R11.2 - Nausea with vomiting, unspecified (4) Neutropenia SNOMED Code(s): 974184940 Code(s): D70.9 - NEUTROPENIA, UNSPECIFIED Status: Acute Priority: High Current Visit: Yes Qualifiers: Neutropenia type: secondary to cancer chemotherapy Qualified Code(s): D70.1 - Agranulocytosis secondary to cancer chemotherapy; T45.1X5A - Adverse effect of antineoplastic and immunosuppressive drugs, initial encounter (5) 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 SNOMED Code(s): 097570472, 829177483 Code(s): C25.9 - MALIGNANT NEOPLASM OF PANCREAS, UNSPECIFIED; C78.00 - SECONDARY MALIGNANT NEOPLASM OF UNSPECIFIED LUNG Status: Acute Priority: High Current Visit: Yes (6) Palliative care patient SNOMED Code(s): 428099584 Code(s): Z51.5 - ENCOUNTER FOR PALLIATIVE CARE Status: Acute Priority: High Current Visit: Yes - Problem List Review Problem List Initiated/Reviewed/Updated: Yes - My Orders Last 24 Hours: My Active Orders 04/21/18 08:44 Chest 2V [CR] Routine UA W/MICROSCOPIC [URIN] Routine 04/22/18 09:10 Abdomen Pelvis w Cont [CT] Routine Chest w Cont [CT] Routine - Assessment Assessment:: Diarrhea Weakness Nausea and vomiting Metastatic Pancreatic Cancer - Plan Plan:: Patient continues to have mild abdominal pain, nausea intermittently. Does still have diarrhea stools but feels they are lessening. Did tolerate oral intake at breakfast this am without vomiting. Does remain very weak. Had recently had her 3rd session of chemotherapy for her pancreatic cancer. Relates she had been tolerating them up to this point. Remains neutropenic, WBC down to 1.4 today. Stool studies collected, negative for WBC and c diff. Will continue with IV fluids. Immodium for ongoing stools. Possible discharge home tomorrow. 04-20-2018 Palliative care patient does feel better today. Does have mild abdominal pain, feels the diarrhea is slowing down. Overall feels stronger. Is running temps today. 101 at times. WBC is down to 0.8 today. Hemoglobin 9.3. CRP slightly increased to 6.7. Blood pressure stable. Is ambulating in room, tolerating well. Abdomen does remain firm to the RUQ, tender with palpation. Will continue with IV fluids. Add Rocephin. Blood cultures x2. Reevaluate labs in am. Transferred to acute status. 04-21-2018 Patient continues to feel weak but better than on admit day. She still has loose stools but improved. Has been running fevers up to 102. Denies cough, no urinary complaints. Did obtain blood cultures yesterday, premilinary negative today. CRP has increased to 23, WBC remains at 0.8. Hemoglobin down to 8.1. Patient relates has not had previous concerns with anemia to the point of ever needing blood transfusions up to this point with chemo. Continues to have nausea, was treated with Zofran. Small intake with meals. Blood pressure is stable. Abdomen remains soft, tender to RUQ. Will continue with IV fluids. Continue Rocephin. Obtain chest xray and urine today. Inappropriate for discharge due to status. 04-22-2018 Patient feeling okay this am. She continues to be weak but diarrhea has lessened to only 2 times per day. Last fever spiked last evening. Has continued to have issues with nausea, corrected with Zofran. WBC is improved to 2.7 this am however CRP is 29. Hemoglobin stable at 8.7. Abdomen is soft this am, less tender. Will continue with IV fluids and Rocephin. multimedia services coordinator did contact her oncology provider who suggests CT scan of chest, abdomen and pelvis to check for progression of the cancer but is not surprised by all of her lab changes as she has reacted this way in the past to chemo. Possible discharge home tomorrow if strength improves and labs remain stable.
[2018-04-22] MEDS ORDERED: Iopamidol 612 MG/ML 100 ML Bottle IVPUSH ONE (11:56)
[2018-04-22] MEDS: cefTRIAXone 1 GM Vial IVPUSH SCH (15:13)
[2018-04-23] MEDS ORDERED: Sodium Chloride 0.9% 10 ML Syringe FLUSH PRN (07:21)
[2018-04-23] MEDS: AMYLASE PO SCH ×3 (07:41→17:48)
[2018-04-23] MEDS: LIPASE PO SCH ×3 (07:41→17:48)
[2018-04-23] MEDS: Aspirin 81 MG Tab.EC PO SCH (07:41)
[2018-04-23] MEDS: PROTEASE PO SCH ×3 (07:41→17:48)
[2018-04-23] MEDS: Pantoprazole 40 MG Tab.CR PO SCH (07:41)
[2018-04-23 08:38] LABS: CHLORIDE,CL 105 mEq/L (98-106); SODIUM,NA 136 mEq/L (136-145)
[2018-04-23] MEDS ORDERED: Potassium Chloride 40 MEQ in Premix Bag 1 BAG IV ONE (08:59)
[2018-04-23] MEDS: oxyCODONE 5 MG Tab PO PRN ×2 (10:04→20:39)
[2018-04-23] MEDS ORDERED: Sodium Chloride 0.9% 250 ML IV SCH (10:15)
[2018-04-23] MEDS ORDERED: Furosemide 40 MG/4 ML VIAL IVPUSH ONE (12:17)
[2018-04-23] MEDS: cefTRIAXone 1 GM Vial IVPUSH SCH (16:30)
--- NOTE | 2018-04-23 17:17 | PCM.PN ---
- General Info Date of Service: 04/23/18 Admission Dx/Problem (Free Text): Diarrhea Subjective Update: Bhumika is a 73 year old female who was admitted on 04/18/2018 for diarrhea and generalized weakness. She is resting comfortably in bed at time of rounds. Her family is at bedside. She reports today that she is feeling better than admit. Does continue to have diarrhea anytime she eats, but reports this has improved. She reports a decreased appetite but has eaten some today. She denies any pain. Denies any shortness of breath. She has been afebrile since 04/21/2018. She reports that she feel "swollen everything." She reports she noticed yesterday evening that she couldn't move her wrist band or ring due to swelling. Functional Status: Reports: Pain Controlled, Tolerating Diet (with episodes of diarrhea after eating), Ambulating, Urinating, New Symptoms (weight gain and swelling) - Review of Systems General: Reports: Weakness, Fatigue. Denies: Fever, Chills HEENT: Reports: No Symptoms Pulmonary: Reports: No Symptoms. Denies: Shortness of Breath, Cough, Sputum, Wheezing Cardiovascular: Reports: Edema. Denies: Chest Pain, Palpitations, Dyspnea on Exertion, Orthopnea, Lightheadedness Gastrointestinal: Reports: Decreased Appetite, Diarrhea, Flatus. Denies: Abdominal Pain, Constipation, Hematochezia, Melena, Nausea, Vomiting Genitourinary: Reports: No Symptoms. Denies: Dysuria, Frequency, Urgency Musculoskeletal: Reports: No Symptoms Skin: Reports: No Symptoms Neurological: Reports: No Symptoms Psychiatric: Reports: No Symptoms - Patient Data Vitals - Most Recent: Last Vital Signs Temp 98 F 04/23/18 16:00 Pulse 113 H 04/23/18 16:00 Resp 16 04/23/18 16:00 BP 120/68 04/23/18 16:00 Pulse Ox 99 04/23/18 16:00 Weight - Most Recent: 187 lb 3.2 oz I&O - Last 24 Hours: Intake & Output 04/23/18 04/23/18 04/23/18 06:59 14:59 22:59 Intake Total 300 Output Total 300 Balance 0 Lab Results Last 24 Hours: Laboratory Results - last 24 hr 04/23/18 04/23/18 Range/Units 05:11 05:11 WBC 8.5 (5.0-10.0) 10^3/uL RBC 2.88 L (4.00-5.50) 10^6/uL Hgb 8.5 L (12.0-16.0) g/dL Hct 25.9 L (37.0-47.0) % MCV 89.9 (82.0-94.0) fL MCH 29.5 (27.0-32.0) pg MCHC 32.8 L (33.0-38.0) g/dL RDW Coeff of Santosh 15.8 H (11.0-15.0) % Plt Count 180 (150-400) 10^3/uL Neut % (Auto) 72.3 (35-85) % Lymph % (Auto) 11.0 (10-55) % Millard % (Auto) 15.1 (0-16) % Eos % (Auto) 1.5 (0-5) % Baso % (Auto) 0.1 (0-3) % Neut # (Auto) 6.14 (1.80-7.00) 10^3/uL Lymph # (Auto) 0.93 L (1.00-4.80) 10^3/uL Millard # (Auto) 1.28 H (0.00-0.80) 10^3/uL Eos # (Auto) 0.13 (0.00-0.45) 10^3/uL Baso # (Auto) 0.01 10^3/uL Sodium 136 (136-145) mEq/L Potassium 3.1 L (3.5-5.0) mEq/L Chloride 105 (98-106) mEq/L Carbon Dioxide 20 L (21-32) mmol/L BUN 15 (7-18) mg/dL Creatinine 0.6 (0.6-1.0) mg/dL Est Cr Clr Drug Dosing 68.02 mL/min Estimated GFR (MDRD) > 60 (>=60) mL/min Glucose 84 (75-99) mg/dL Calcium 8.5 (8.4-10.1) mg/dL C-Reactive Protein 23.9 H (0.2-0.8) mg/dL Jan Results Last 24 Hours: Microbiology 04/20/18 12:00 Aerobic Blood Culture - Preliminary Blood - Venous NO GROWTH AFTER 3 DAYS Anaerobic Blood Culture - Preliminary NO GROWTH AFTER 3 DAYS 04/20/18 12:13 Aerobic Blood Culture - Preliminary Blood - Venous - Lab Draw NO GROWTH AFTER 3 DAYS Anaerobic Blood Culture - Preliminary NO GROWTH AFTER 3 DAYS Med Orders - Current: Current Medications Acetaminophen (Tylenol) 650 mg PO Q4H PRN PRN Reason: Pain (Mild 1-3)/fever Last Admin: 04/22/18 19:51 Dose: 650 mg Aspirin (Halfprin) 81 mg PO DAILY [facility] Last Admin: 04/23/18 07:41 Dose: 81 mg Ceftriaxone Sodium (Rocephin) 1 gm IVPUSH DAILY@1600 [facility] Last Admin: 04/23/18 16:30 Dose: 1 gm Diphenoxylate HCl/Atropine (Lomotil 0.025-2.5 Mg) 1 tab PO DAILY PRN PRN Reason: Diarrhea Last Admin: 04/19/18 08:28 Dose: 1 tab Furosemide (Lasix) 40 mg IVPUSH 0800,1600 [facility] Ondansetron HCl 8 mg/ Sodium (Chloride) 54 mls @ 200 mls/hr IV Q6H PRN PRN Reason: nausea/vomiting Last Admin: 04/21/18 16:14 Dose: 200 mls/hr Sodium Chloride (Normal Saline) 250 mls @ 62.5 mls/hr IV ASDIRECTED [facility] Last Admin: 04/23/18 10:24 Dose: 62.5 mls/hr Ibuprofen (Motrin) 400 mg PO Q6H PRN PRN Reason: Pain/Fever Last Admin: 04/21/18 03:32 Dose: 400 mg Loperamide HCl (Imodium) 4 mg PO Q6H PRN PRN Reason: Diarrhea Last Admin: 04/20/18 16:27 Dose: 4 mg Morphine Sulfate (Morphine) 1 mg IVPUSH Q2H PRN PRN Reason: Pain (severe 7-10) Last Admin: 04/19/18 18:36 Dose: 1 mg Ptom Rivaroxaban ([Xarelto] 20 Mg Tab) 1 tab PO DAILY [facility] Ptom Amylase/Lipase/Protease 12, 000 Units 36,000 units PO TIDMEALS [facility] Last Admin: 04/23/18 11:52 Dose: 36,000 units Oxycodone HCl (Oxycodone) 5 mg PO Q6H PRN PRN Reason: Pain Last Admin: 04/23/18 10:04 Dose: 5 mg Pantoprazole Sodium (Protonix) 40 mg PO ACBREAKFAST [facility] Last Admin: 04/23/18 07:41 Dose: 40 mg Potassium Chloride (Klor-Con 10) 40 meq PO BIDMEALS [facility] Prochlorperazine Maleate (Compazine) 5 mg PO DAILY PRN PRN Reason: Nausea Last Admin: 04/21/18 00:00 Dose: 5 mg Sodium Chloride (Saline Flush) 10 ml FLUSH ASDIRECTED PRN PRN Reason: Keep Vein Open Temazepam (Restoril) 15 mg PO BEDTIME PRN PRN Reason: Sleep Last Admin: 04/20/18 00:39 Dose: 15 mg Discontinued Medications Furosemide (Lasix) 40 mg IVPUSH ONETIME ONE Stop: 04/23/18 12:18 Last Admin: 04/23/18 12:33 Dose: 40 mg Heparin Sodium (Porcine) (Heparin Lock Flush 100 Units/Ml) Confirm Administered Dose 500 units .ROUTE .STK-MED ONE Stop: 04/23/18 07:34 Last Admin: 04/23/18 07:42 Dose: 500 units Lactated Ringer's (Ringers, Lactated) 1,000 mls @ 999 mls/hr IV .BOLUS ONE Stop: 04/18/18 18:57 Last Admin: 04/18/18 18:23 Dose: 999 mls/hr Potassium Chloride/Sodium Chloride (Normal Saline With 20 Meq Kcl) 1,000 mls @ 125 mls/hr IV ASDIRECTED [facility] Potassium Chloride 40 meq/ (Premix) 100 mls @ 12.5 mls/hr IV ONETIME ONE Stop: 04/19/18 04:06 Last Admin: 04/18/18 20:33 Dose: 12.5 mls/hr Sodium Chloride (Normal Saline) 1,000 mls @ 125 mls/hr IV ONETIME ONE Stop: 04/19/18 04:09 Last Admin: 04/18/18 20:33 Dose: 125 mls/hr Potassium Chloride/Sodium Chloride (Normal Saline With 20 Meq Kcl) 1,000 mls @ 125 mls/hr IV ASDIRECTED [facility] Last Admin: 04/22/18 23:19 Dose: 125 mls/hr Potassium Chloride 40 meq/ (Premix) 100 mls @ 25 mls/hr IV ONETIME ONE Stop: 04/23/18 12:58 Last Admin: 04/23/18 09:56 Dose: 25 mls/hr Ibuprofen (Motrin) 200 mg PO Q6H PRN PRN Reason: Pain/Fever Iopamidol (Isovue-300 (61%)) 100 ml IVPUSH ONETIME ONE Stop: 04/22/18 11:57 Last Admin: 04/22/18 12:20 Dose: 100 ml Ptom Amylase/Lipase/Protease 12, 000 Units 12,000 units PO DAILY [facility] Last Admin: 04/20/18 09:42 Dose: Not Given Ptom Amylase/Lipase/Protease 12, 000 Units 36,000 units PO TID [facility] Last Admin: 04/20/18 09:43 Dose: 36,000 units Ondansetron HCl (Zofran) Confirm Administered Dose 4 mg .ROUTE .STK-MED ONE Stop: 04/18/18 18:47 Last Admin: 04/18/18 18:56 Dose: 4 mg Ondansetron HCl (Zofran) 8 mg IV Q6H PRN PRN Reason: Nausea/Vomiting - Exam Quality Assessment: No: Supplemental Oxygen General: Alert, Oriented, No Acute Distress Neck: Supple Lungs: Clear to Auscultation, Normal Respiratory Effort Cardiovascular: Regular Rate, Regular Rhythm GI/Abdominal Exam: Normal Bowel Sounds, Soft, Distended, Tender (RUQ), Hepatomegaly, Other (ascites) Back Exam: Normal Inspection, Full Range of Motion. No: CVA Tenderness (L), CVA Tenderness (R) Extremities: Normal Capillary Refill, Pedal Edema (2+) Peripheral Pulses: 2+: Dorsalis Pedis (L), Dorsalis Pedis (R) Skin: Warm, Dry, Intact Neurological: No New Focal Deficit Psy/Mental Status: Alert, Normal Affect, Normal Mood - Problem List & Annotations (1) Diarrhea SNOMED Code(s): 78255188 Code(s): R19.7 - DIARRHEA, UNSPECIFIED Status: Acute Priority: High Current Visit: Yes (2) Generalized weakness SNOMED Code(s): 44706434 Code(s): R53.1 - WEAKNESS Status: Acute Priority: High Current Visit: Yes (3) Neutropenia SNOMED Code(s): 129783943 Code(s): D70.9 - NEUTROPENIA, UNSPECIFIED Status: Acute Priority: High Current Visit: Yes Qualifiers: Neutropenia type: secondary to cancer chemotherapy Qualified Code(s): D70.1 - Agranulocytosis secondary to cancer chemotherapy; T45.1X5A - Adverse effect of antineoplastic and immunosuppressive drugs, initial encounter (4) 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 SNOMED Code(s): 210972014, 213193423 Code(s): C25.9 - MALIGNANT NEOPLASM OF PANCREAS, UNSPECIFIED; C78.00 - SECONDARY MALIGNANT NEOPLASM OF UNSPECIFIED LUNG Status: Acute Priority: High Current Visit: Yes (5) Fluid overload SNOMED Code(s): 15009234 Code(s): E87.70 - FLUID OVERLOAD, UNSPECIFIED Status: Acute Current Visit : Yes (6) Palliative care patient SNOMED Code(s): 163546444 Code(s): Z51.5 - ENCOUNTER FOR PALLIATIVE CARE Status: Acute Priority: High Current Visit: Yes - Problem List Review Problem List Initiated/Reviewed/Updated: Yes - My Orders Last 24 Hours: My Active Orders 04/22/18 23:36 Weight Daily [Height and Weight] [RC] 0500 04/23/18 07:21 Sodium Chloride 0.9% [Saline Flush] 10 ml FLUSH ASDIRECTED PRN Convert IV to Saline Lock [OM.PC] Routine 04/23/18 10:15 Sodium Chloride 0.9% [Normal Saline] 250 ml IV ASDIRECTED 04/23/18 17:09 Furosemide [Lasix] 40 mg IVPUSH 0800,1600 04/23/18 17:30 Potassium Chloride [Klor-Con 10] 40 meq PO BIDMEALS - Assessment Assessment:: Diarrhea Weakness Nausea and vomiting Metastatic Pancreatic Cancer - Plan Plan:: 04/19/2018 Patient continues to have mild abdominal pain, nausea intermittently. Does still have diarrhea stools but feels they are lessening. Did tolerate oral intake at breakfast this am without vomiting. Does remain very weak. Had recently had her 3rd session of chemotherapy for her pancreatic cancer. Relates she had been tolerating them up to this point. Remains neutropenic, WBC down to 1.4 today. Stool studies collected, negative for WBC and c diff. Will continue with IV fluids. Immodium for ongoing stools. Possible discharge home tomorrow. 04-20-2018 Palliative care patient does feel better today. Does have mild abdominal pain, feels the diarrhea is slowing down. Overall feels stronger. Is running temps today. 101 at times. WBC is down to 0.8 today. Hemoglobin 9.3. CRP slightly increased to 6.7. Blood pressure stable. Is ambulating in room, tolerating well. Abdomen does remain firm to the RUQ, tender with palpation. Will continue with IV fluids. Add Rocephin. Blood cultures x2. Reevaluate labs in am. Transferred to acute status. 04-21-2018 Patient continues to feel weak but better than on admit day. She still has loose stools but improved. Has been running fevers up to 102. Denies cough, no urinary complaints. Did obtain blood cultures yesterday, premilinary negative today. CRP has increased to 23, WBC remains at 0.8. Hemoglobin down to 8.1. Patient relates has not had previous concerns with anemia to the point of ever needing blood transfusions up to this point with chemo. Continues to have nausea, was treated with Zofran. Small intake with meals. Blood pressure is stable. Abdomen remains soft, tender to RUQ. Will continue with IV fluids. Continue Rocephin. Obtain chest xray and urine today. Inappropriate for discharge due to status. 04-22-2018 Patient feeling okay this am. She continues to be weak but diarrhea has lessened to only 2 times per day. Last fever spiked last evening. Has continued to have issues with nausea, corrected with Zofran. WBC is improved to 2.7 this am however CRP is 29. Hemoglobin stable at 8.7. Abdomen is soft this am, less tender. Will continue with IV fluids and Rocephin. guest services officer did contact her oncology provider who suggests CT scan of chest, abdomen and pelvis to check for progression of the cancer but is not surprised by all of her lab changes as she has reacted this way in the past to chemo. Possible discharge home tomorrow if strength improves and labs remain stable. 04-23-2018 0900 Patient feeling okay this morning. Continues to feel weak. Has not been ambulating much, other than to the bathroom. She reports she does have diarrhea anytime she eats something, but reports this is improving. Has been afebrile since evening of 04/21/2018. Continue on Rocephin. Has decreased appetite and occasional nausea. Denies any pain but does have tenderness with palpation of RUQ. WBC improved to 8.5 today. CRP down to 23.9. Hemoglobin stable at 8.5. Potassium decreased to 3.1. K replaced with 40 meq IV KCL. Labs otherwise stable. Was called by nursing staff late last evening reporting patients worsening edema. Weight was checked and noted to be up ~25 lbs via bed scale. Patient only had 900 urine output total yesterday and 500 the day prior. Discontinued IVF. Lasix 40 mg BID. Start PO potassium supplements. Monitor urine output. Daily weights. All culture remain negative to date. Long discussion had with patient, patient's son and daughter in law. Discussed with patient that I am still waiting for radiologist report on CT chest/abdomen/pelvis. 04-23-2018 1600 Patient has had 1400 mL urine output since Lasix dose. Edema slightly improved as she is able to move her ring on her finger now. Will give additional dose Lasix now and again in am and monitor urine output and weight to see if edema improves. Discussed with patient and family that I would prefer to monitor overnight and reassess readiness for discharge in the morning given significant weight gain. Patient continues to deny shortness of breath. Did discuss with radiologist prelim report of CT scan. He reports inflammation of colon and worsening ascites, but no obvious progression of disease from February 2018, but he wanted more comparison. Did contact [facility] to push old CT images to [place]. Awaiting final radiology report. These findings were discussed with patient and her family. Multiple family members at bedside. All questions were answered. Anticipate discharge 1-2 days if labs remain stable and edema improves.
[2018-04-23] MEDS: Potassium Chloride 10 MEQ Tab.ER PO SCH (17:48)
[2018-04-23] MEDS: Furosemide 40 MG/4 ML VIAL IVPUSH SCH (17:50)
[2018-04-23] MEDS: Acetaminophen 325 MG Tab PO PRN (20:40)
[2018-04-24] MEDS: oxyCODONE 5 MG Tab PO PRN (06:05)
[2018-04-24] MEDS: Pantoprazole 40 MG Tab.CR PO SCH (06:05)
[2018-04-24] MEDS: LIPASE PO SCH ×2 (07:48→12:47)
[2018-04-24] MEDS: PROTEASE PO SCH ×2 (07:48→12:47)
[2018-04-24] MEDS: AMYLASE PO SCH ×2 (07:48→12:47)
[2018-04-24] MEDS: Aspirin 81 MG Tab.EC PO SCH (07:49)
[2018-04-24] MEDS: Potassium Chloride 10 MEQ Tab.ER PO SCH (07:49)
[2018-04-24] MEDS: Furosemide 40 MG/4 ML VIAL IVPUSH SCH (07:50)
[2018-04-24 07:56] VITALS: BP 118/65
[2018-04-24 07:58] LABS: CHLORIDE,CL 103 mEq/L (98-106); SODIUM,NA 136 mEq/L (136-145)
--- NOTE | 2018-04-24 12:02 | PCM.DCSUM1 ---
Discharge Summary - Discharge Data Discharge Date: 04/24/18 Discharge Disposition: Home, Self-Care 01 Condition: Fair - Discharge Diagnosis/Problem(s) (1) Diarrhea SNOMED Code(s): 55251226 ICD Code: R19.7 - DIARRHEA, UNSPECIFIED Status: Acute Priority: High Current Visit: Yes (2) Generalized weakness SNOMED Code(s): 17528136 ICD Code: R53.1 - WEAKNESS Status: Acute Priority: High Current Visit: Yes (3) Neutropenia SNOMED Code(s): 027267362 ICD Code: D70.9 - NEUTROPENIA, UNSPECIFIED Status: Acute Priority: High Current Visit: Yes Qualifiers: Neutropenia type: secondary to cancer chemotherapy Qualified Code(s): D70.1 - Agranulocytosis secondary to cancer chemotherapy; T45.1X5A - Adverse effect of antineoplastic and immunosuppressive drugs, initial encounter (4) 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 SNOMED Code(s): 000385009, 339679019 ICD Code: C25.9 - MALIGNANT NEOPLASM OF PANCREAS, UNSPECIFIED; C78.00 - SECONDARY MALIGNANT NEOPLASM OF UNSPECIFIED LUNG Status: Acute Priority: High Current Visit: Yes (5) Fluid overload SNOMED Code(s): 91877781 ICD Code: E87.70 - FLUID OVERLOAD, UNSPECIFIED Status: Acute Current Visit: Yes (6) Palliative care patient SNOMED Code(s): 932416294 ICD Code: Z51.5 - ENCOUNTER FOR PALLIATIVE CARE Status: Acute Priority: High Current Visit: Yes - Patient Instructions Diet: Usual Diet as Tolerated Activity: As Tolerated, No Strenuous Activities Notify Provider of: Fever, Increased Pain, Swelling and Redness, Nausea and/or Vomiting - Discharge Plan *PRESCRIPTION DRUG MONITORING PROGRAM REVIEWED*: Not Applicable *COPY OF PRESCRIPTION DRUG MONITORING REPORT IN PATIENT RAKESH: Not Applicable Home Medications: Home Meds Aspirin [Adult Low Dose Aspirin EC] 81 mg PO DAILY 03/07/16 [History] Cholecalciferol (Vitamin D3) [Vitamin D3] 1,000 unit PO DAILY 03/07/16 [History] Multivitamin [Multi-Vitamin Daily] 1 tab PO DAILY 03/07/16 [History] Prochlorperazine [Compazine] 5 mg PO DAILY PRN 03/18/18 [History] Amylase/Lipase/Protease [Creon DR 24,000 Unit] 36,000 units PO TIDMEALS [History] Diphenoxylate HCl/Atropine [Diphenoxylate-Atrop 2.5-0.025] 1 tab PO DAILY PRN [History] Ondansetron [Ondansetron ODT] 1 tab PO Q8H PRN 04/18/18 [History] Rivaroxaban [Xarelto] 1 tab PO DAILY 04/18/18 [History] Ciprofloxacin HCl [Cipro] 500 mg PO BID 04/19/18 [History] Loperamide HCl [Loperamide] 1 tab PO DAILY PRN 04/19/18 [History] Ranitidine [Zantac] 150 mg PO DAILY 04/19/18 [History] Patient Handouts: Diarrhea, Adult, Neutropenia, Dehydration, Adult Forms: ED Department Discharge Referrals: Debbie Costello PA-C [Ordering Only Provider] - - General Info Date of Service: 04/24/18 - Patient Data Vitals - Most Recent: Last Vital Signs Temp 97.1 F 04/24/18 07:55 Pulse 104 H 04/24/18 04:00 Resp 18 04/24/18 07:55 BP 118/65 04/24/18 07:55 Pulse Ox 97 04/24/18 07:55 Weight - Most Recent: 180 lb 6.4 oz I&O - Last 24 hours: Intake & Output 04/23/18 04/24/18 04/24/18 22:59 06:59 14:59 Intake Total 650 450 400 Output Total 2700 2100 900 Balance -2049 Lab Results - Last 24 hrs: Laboratory Results - last 24 hr 04/24/18 04/24/18 Range/Units 05:11 05:11 WBC 13.7 H (5.0-10.0) 10^3/uL RBC 2.96 L (4.00-5.50) 10^6/uL Hgb 8.7 L (12.0-16.0) g/dL Hct 26.3 L (37.0-47.0) % MCV 88.9 (82.0-94.0) fL MCH 29.4 (27.0-32.0) pg MCHC 33.1 (33.0-38.0) g/dL RDW Coeff of Santosh 16.3 H (11.0-15.0) % Plt Count 242 (150-400) 10^3/uL Neut % (Auto) 77.2 (35-85) % Lymph % (Auto) 9.1 L (10-55) % Avery % (Auto) 12.8 (0-16) % Eos % (Auto) 0.8 (0-5) % Baso % (Auto) 0.1 (0-3) % Neut # (Auto) 10.59 H (1.80-7.00) 10^3/uL Lymph # (Auto) 1.24 (1.00-4.80) 10^3/uL Avery # (Auto) 1.75 H (0.00-0.80) 10^3/uL Eos # (Auto) 0.11 (0.00-0.45) 10^3/uL Baso # (Auto) 0.01 10^3/uL Sodium 136 (136-145) mEq/L Potassium 3.1 L (3.5-5.0) mEq/L Chloride 103 (98-106) mEq/L Carbon Dioxide 22 (21-32) mmol/L BUN 15 (7-18) mg/dL Creatinine 0.7 (0.6-1.0) mg/dL Est Cr Clr Drug Dosing 58.30 mL/min Estimated GFR (MDRD) > 60 (>=60) mL/min Glucose 95 (75-99) mg/dL Calcium 8.4 (8.4-10.1) mg/dL Total Bilirubin 0.3 (0.0-1.0) mg/dL AST 22 (15-37) U/L ALT 8 L (12-78) U/L Alkaline Phosphatase 72 (46-116) U/L C-Reactive Protein 17.9 H (0.2-0.8) mg/dL Total Protein 4.6 L (6.4-8.2) g/dL Albumin 1.5 L (3.4-5.0) g/dL JOSR Results - Last 24 hrs: Microbiology 04/20/18 12:00 Aerobic Blood Culture - Preliminary Blood - Venous NO GROWTH AFTER 3 DAYS Anaerobic Blood Culture - Preliminary NO GROWTH AFTER 3 DAYS 04/20/18 12:13 Aerobic Blood Culture - Preliminary Blood - Venous - Lab Draw NO GROWTH AFTER 3 DAYS Anaerobic Blood Culture - Preliminary NO GROWTH AFTER 3 DAYS Med Orders - Current: Current Medications Acetaminophen (Tylenol) 650 mg PO Q4H PRN PRN Reason: Pain (Mild 1-3)/fever Last Admin: 04/23/18 20:40 Dose: 650 mg Aspirin (Halfprin) 81 mg PO DAILY [facility] Last Admin: 04/24/18 07:49 Dose: 81 mg Ceftriaxone Sodium (Rocephin) 1 gm IVPUSH DAILY@1600 [facility] Last Admin: 04/23/18 16:30 Dose: 1 gm Diphenoxylate HCl/Atropine (Lomotil 0.025-2.5 Mg) 1 tab PO DAILY PRN PRN Reason: Diarrhea Last Admin: 04/19/18 08:28 Dose: 1 tab Furosemide (Lasix) 40 mg IVPUSH BID@0800,1600 [facility] Last Admin: 04/24/18 07:50 Dose: 40 mg Ondansetron HCl 8 mg/ Sodium (Chloride) 54 mls @ 200 mls/hr IV Q6H PRN PRN Reason: nausea/vomiting Last Admin: 04/21/18 16:14 Dose: 200 mls/hr Sodium Chloride (Normal Saline) 250 mls @ 62.5 mls/hr IV ASDIRECTED [facility] Last Admin: 04/23/18 10:24 Dose: 62.5 mls/hr Ibuprofen (Motrin) 400 mg PO Q6H PRN PRN Reason: Pain/Fever Last Admin: 04/21/18 03:32 Dose: 400 mg Loperamide HCl (Imodium) 4 mg PO Q6H PRN PRN Reason: Diarrhea Last Admin: 04/20/18 16:27 Dose: 4 mg Morphine Sulfate (Morphine) 1 mg IVPUSH Q2H PRN PRN Reason: Pain (severe 7-10) Last Admin: 04/19/18 18:36 Dose: 1 mg Ptom Rivaroxaban ([Xarelto] 20 Mg Tab) 1 tab PO DAILY [facility] Ptom Amylase/Lipase/Protease 12, 000 Units 36,000 units PO TIDMEALS [facility] Last Admin: 04/24/18 07:48 Dose: 36,000 units Oxycodone HCl (Oxycodone) 5 mg PO Q6H PRN PRN Reason: Pain Last Admin: 08/26/18 06:05 Dose: 5 mg Pantoprazole Sodium (Protonix) 40 mg PO ACBREAKFAST [facility] Last Admin: 04/24/18 06:05 Dose: 40 mg Potassium Chloride (Klor-Con 10) 40 meq PO BIDMEALS [facility] Last Admin: 04/24/18 07:49 Dose: 40 meq Prochlorperazine Maleate (Compazine) 5 mg PO DAILY PRN PRN Reason: Nausea Last Admin: 04/21/18 00:00 Dose: 5 mg Sodium Chloride (Saline Flush) 10 ml FLUSH ASDIRECTED PRN PRN Reason: Keep Vein Open Temazepam (Restoril) 15 mg PO BEDTIME PRN PRN Reason: Sleep Last Admin: 04/20/18 00:39 Dose: 15 mg Discontinued Medications Furosemide (Lasix) 40 mg IVPUSH ONETIME ONE Stop: 04/23/18 12:18 Last Admin: 04/23/18 12:33 Dose: 40 mg Heparin Sodium (Porcine) (Heparin Lock Flush 100 Units/Ml) Confirm Administered Dose 500 units .ROUTE .STK-MED ONE Stop: 04/23/18 07:34 Last Admin: 04/23/18 07:42 Dose: 500 units Lactated Ringer's (Ringers, Lactated) 1,000 mls @ 999 mls/hr IV .BOLUS ONE Stop: 04/18/18 18:57 Last Admin: 04/18/18 18:23 Dose: 999 mls/hr Potassium Chloride/Sodium Chloride (Normal Saline With 20 Meq Kcl) 1,000 mls @ 125 mls/hr IV ASDIRECTED [facility] Potassium Chloride 40 meq/ (Premix) 100 mls @ 12.5 mls/hr IV ONETIME ONE Stop: 04/19/18 04:06 Last Admin: 04/18/18 20:33 Dose: 12.5 mls/hr Sodium Chloride (Normal Saline) 1,000 mls @ 125 mls/hr IV ONETIME ONE Stop: 04/19/18 04:09 Last Admin: 04/18/18 20:33 Dose: 125 mls/hr Potassium Chloride/Sodium Chloride (Normal Saline With 20 Meq Kcl) 1,000 mls @ 125 mls/hr IV ASDIRECTED [facility] Last Admin: 04/22/18 23:19 Dose: 125 mls/hr Potassium Chloride 40 meq/ (Premix) 100 mls @ 25 mls/hr IV ONETIME ONE Stop: 04/23/18 12:58 Last Admin: 04/23/18 09:56 Dose: 25 mls/hr Ibuprofen (Motrin) 200 mg PO Q6H PRN PRN Reason: Pain/Fever Iopamidol (Isovue-300 (61%)) 100 ml IVPUSH ONETIME ONE Stop: 04/22/18 11:57 Last Admin: 04/22/18 12:20 Dose: 100 ml Ptom Amylase/Lipase/Protease 12, 000 Units 12,000 units PO DAILY [facility] Last Admin: 04/20/18 09:42 Dose: Not Given Ptom Amylase/Lipase/Protease 12, 000 Units 36,000 units PO TID [facility] Last Admin: 04/20/18 09:43 Dose: 36,000 units Ondansetron HCl (Zofran) Confirm Administered Dose 4 mg .ROUTE .STK-MED ONE Stop: 04/18/18 18:47 Last Admin: 04/18/18 18:56 Dose: 4 mg Ondansetron HCl (Zofran) 8 mg IV Q6H PRN PRN Reason: Nausea/Vomiting *Q Meaningful Use (DIS) - VTE *Q VTE Anticoagulation Contraindications: Alternative [place] Request PT
== END 2018-04-24 14:00 | disposition home or self-care (01) | DRG 394 ==
LOC: CC.ED 17:41 → CC.MS 19:23 → UNDOADMOB 19:23 → CC.MS 19:29 → OBSVTOIN 04-20 09:11
PROVIDERS: ADMIT Nurse Practitioner Family; ATTEND Family Medicine
DX: K52.1 Toxic gastroenteritis and colitis (principal); C25.0 Malignant neoplasm of head of pancreas; C78.00 Secondary malignant neoplasm of unspecified lung; R19.7 Diarrhea, unspecified; C78.7 Secondary malignant neoplasm of liver and intrahepatic bile duct; C78.6 Secondary malignant neoplasm of retroperitoneum and peritoneum; E86.0 Dehydration; D70.1 Agranulocytosis secondary to cancer chemotherapy; T45.1X5A Adverse effect of antineoplastic and immunosuppressive drugs, initial encounter; R53.1 Weakness; Z79.899 Other long term (current) drug therapy; Z79.01 Long term (current) use of anticoagulants; Z86.718 Personal history of other venous thrombosis and embolism; R53.83 Other fatigue; Z88.8 Allergy status to other drugs, medicaments and biological substances; R11.2 Nausea with vomiting, unspecified; R63.4 Abnormal weight loss; Z79.82 Long term (current) use of aspirin; Z66 Do not resuscitate; Z51.5 Encounter for palliative care
CPT/HCPCS: 36415 ×2; 80048 ×3; 80076; 85025 ×3; 86140 ×2; 87045; 87046 ×3; 87493; 89055; 99284; A9270 ×8; J2270; J2405 ×2; J3480 ×5; J7030; J7050; J7120; 71046; 71260; 74177; 80053; 81001; 87040; J0696; J1642; J1940; Q0164; Q9967